=== PATIENT | male | born 1940 | race Caucasian/White ===

== ENCOUNTER 2021-09-01 08:32 | Day surgery (SDC) | payer MEDICARE ==
[2021-08-20 10:54] VITALS: BMI 28.7
[2021-09-01] MEDS ORDERED: PROPOFOL 20 ML ONE (09:47)
== END 2021-09-01 11:00 | disposition home or self-care (01) ==
LOC: CSHSDC 08:32
PROVIDERS: ATTEND Internal Medicine Gastroenterology
PROC: 0DB68ZZ Excision of Stomach, Via Natural or Artificial Opening Endoscopic (ICD-10-PCS; principal; 2021-09-01)
DX: K22.70 Barrett's esophagus without dysplasia (principal); K21.9 Gastro-esophageal reflux disease without esophagitis; K31.7 Polyp of stomach and duodenum; K44.9 Diaphragmatic hernia without obstruction or gangrene; Z79.899 Other long term (current) drug therapy; Z85.46 Personal history of malignant neoplasm of prostate
CPT/HCPCS: 88305; J2704

== ENCOUNTER 2021-09-10 12:49 | Outpatient (CLI) | payer MEDICARE | END 2021-09-10 12:50 | disposition home or self-care (01) | LOC: CSHMRI 12:49 | PROVIDERS: ATTEND Psychiatry & Neurology Neurology | DX: G31.1 Senile degeneration of brain, not elsewhere classified (principal) | CPT/HCPCS: 70553; 82565 ==